=== PATIENT | male | born 1975 | race Caucasian/White ===

== ENCOUNTER 2023-06-01 10:04 | Inpatient (IN) | payer BC, SELFPAY ==
[2023-06-01] VITALS (11 sets, daily range): BP systolic 104–141; BP diastolic 79–99; PULSE 78–112; RESP 14–19; TEMP 36.2–37.2; O2SAT 96–99; BMI 25.5; BMI 26.6; BMI 26.7
--- NOTE | ~2023-06-01 | CT_ITS ---
EXAMINATION: CT ABDOMEN AND PELVIS WITH CONTRAST CLINICAL INFORMATION: Right lower quadrant pain COMPARISON: None available. TECHNIQUE: Multidetector volumetric images were obtained from the superior aspect of the liver through the pubic symphysis following administration 85 mL of Omnipaque 350 intravenous contrast. Sagittal and coronal reformatted images were obtained on the technologist's workstation. Oral contrast: No This CT examination was performed using dose optimization techniques as appropriate, variously including the following: *Automated exposure control *Adjustment of mA and/or kV according to patient size (this includes techniques or standardized protocols for targeted exams where dose is matched to indication/reason for exam; i.e. extremities or head) *Use of iterative reconstruction technique DLP: 432 mGy-cm FINDINGS: LUNG BASES: Unremarkable. LIVER AND BILIARY TREE: Unremarkable. GALLBLADDER: Unremarkable. PANCREAS: Unremarkable. SPLEEN: Unremarkable. ADRENAL GLANDS: Unremarkable. KIDNEYS AND URETERS: Right renal simple cyst and left renal subcentimeter hypoattenuating lesion, too small to characterize but statistically likely to represent a benign cyst for which no follow-up imaging is recommended. GASTROINTESTINAL TRACT: Dilated, fluid-filled appendix, measuring up to 1.1 cm in diameter (series 3, image 69), with mucosal thickening and marked periappendiceal fat stranding with trace fluid tracking along the mesoappendix. No periappendiceal fluid collections or free air identified. No mucosal discontinuity identified. VASCULAR: Unremarkable LYMPH NODES: No lymphadenopathy. PERITONEUM: No ascites. BLADDER: Unremarkable. PELVIC VISCERA: Unremarkable. ABDOMINAL AND PELVIC WALL: Unremarkable. OSSEOUS STRUCTURES: Mild multilevel degenerative lumbar spondylosis. CT/CT abdomen pelvis w IV con IMPRESSION: Acute uncomplicated appendicitis.
[2023-06-01 10:24] LABS: Basophils Absolute Auto 0.1 X10*3/uL (0.0-0.2); Basophils Percent Auto 0.5 % (0-2); Eosinophils Percent Auto 0.3 % (0-4); Hemoglobin 14.4 g/dl (14.0-18.0); Imm Gran Abs Auto 0.04 X10*3/uL (0.00-0.03); Imm Gran Pct Auto 0.3 % (0.0-0.4); Lymphocytes Absolute Auto 2.2 X10*3/uL (1.2-4.9); Lymphocytes Percent Auto 14.5 % (20-40); MANUAL DIFF FLAG SCAN; Mean Corpuscular HGB Conc 34.3 g/dl (31.0-36.0); Mean Corpuscular Hemoglobin 30.1 pg (27.0-33.0); Mean Corpuscular Volume 87.7 fL (80.0-98.0); Mean Platelet Volume 9.1 fL (9.4-12.4); Monocytes Absolute Auto 1.6 X10*3/uL (0.1-1.2); Monocytes Percent Auto 10.6 % (2-11); Neutrophils Absolute Auto 11.3 x10*3/uL (2.0-8.3); Neutrophils Percent Auto 73.8 % (45-73); Platelet Count 336 X10*3/uL (160-400); Red Blood Count 4.79 X10*6/uL (4.60-5.80); Red Cell Distribution Width 12.2 % (11.0-16.0); SCAN SMEAR FLAG 1; White Blood Count 15.2 X10*3/uL (4.8-10.8)
[2023-06-01 10:42] LABS: SLIDE REVIEW VERIFIED
[2023-06-01 10:45] LABS: Alanine Aminotransferase 17 U/L (0-40); Albumin Level 4.5 g/dL (3.5-5.0); Alkaline Phosphatase 100 U/L (39-117); Anion Gap 14 (12-20); Aspartate Amino Transferase 12 U/L (5-37); Bilirubin Direct 0.2 mg/dL (0.0-0.5); Bilirubin Total 0.6 mg/dL (0.0-1.0); Blood Urea Nitrogen 23 mg/dL (9-16); Calcium 9.9 mg/dL (8.4-10.2); Carbon Dioxide 29 mmol/L (22-29); Chloride 100 mmol/L (96-108); Creatinine Clr Calc Pharmacy 71.2; Estimated Glomerular Filt Rate > 60; Glucose Random 116 mg/dL (60-115); Lipase 19 U/L (8-78); Potassium 3.8 mmol/L (3.3-5.1); Sodium 139 mmol/L (135-145); Total Protein 8.7 g/dL (6.5-8.0)
[2023-06-01] MEDS: 0.9 % Sodium Chloride 1,000 ML 999 ML IV (14:27)
[2023-06-01] MEDS: Ketorolac Tromethamine 30 MG/ML VIAL 15 MG IVPUSH (14:33)
--- NOTE | 2023-06-01 14:38 | ED_ITS ---
HPI - Abdominal Pain General Chief Complaint: Abdominal Pain Stated Complaint: Sharp abd pain Time Seen by Provider: 06/01/23 14:12 Source: patient Mode of arrival: ambulatory History of Present Illness HPI narrative: 48-year-old male who presents with onset mid abdominal discomfort that started on Friday and then states that the pain just remains constant and will not go away, patient reports he does have a hernia but otherwise denies nausea, vomiting, fever chills and denies any prior surgery within the abdomen. Related Data Allergies Allergy/AdvReac Type Severity Reaction Status Date / Time Penicillins [PCN] Allergy Unknown HIVES Verified 06/01/23 14:27 [facility] Social History Social History Advance Directives: No Advance Directives Information Provided: No Physical Exam ED Vital Signs: Vital Signs - 24 hr 06/01/23 10:09 06/01/23 14:22 Temperature 97.2 F 98.3 F Pulse Rate 112 H 105 H Respiratory Rate 17 18 Blood Pressure 129/87 134/91 H Pulse Oximetry 97 99 Oxygen Delivery Method Room Air Room Air BMI result Body Mass Index 25.5 Medical Decision Making Medical Decision Making [facility] Narrative: 1420: 48-year-old male with history and clinical presentation, DDX: Appendicitis, strangulated hernia, less likely felt to be UTI or renal colic. Patient getting antibiotics/fluids/pain medication. I reviewed all investigations and patient has a noted leukocytosis with left shift but no anemia or thrombocytopenia. Chemistry indices do not demonstrate an GOPI and there is no electrolyte or liver enzyme derangements. CT scan demonstrates early uncomplicated appendicitis. 1611: I texted Dr. Alberto who is currently in the OR but have also signed the patient out to Dr. Miles to follow-up. Patient states that his pain has improved. Patient is been made NPO and continuous IV fluids have been started. All results and findings were discussed with he and his at bedside. Signed out to Dr Milesto coordinate details with Dr Alberto Differential Diagnosis Differential Diagnoses: The differential diagnosis associated with the presentation includes Please see the discussion above Admission/Observation Consideration of admission/observation: Escalation of care including admission/observation considered Please see the discussion above Consult Healthcare Provider Management of the patient was discussed with: [employer] Operator Please see the discussion above Lab Data [facility] Lab Attestation statement: I reviewed the patient's lab results. Please see the discussion above 06/01/23 10:19 06/01/23 10:19 Labs: Lab Results 06/01/23 06/01/23 Range/Units 10:19 14:26 WBC 15.2 H (4.8-10.8) X10*3/uL RBC 4.79 (4.60-5.80) X10*6/uL Hgb 14.4 (14.0-18.0) g/dl Hct 42.0 (42.0-52.0) % MCV 87.7 (80.0-98.0) fL MCH 30.1 (27.0-33.0) pg MCHC 34.3 (31.0-36.0) g/dl RDW 12.2 (11.0-16.0) % Plt Count 336 (160-400) X10*3/uL MPV 9.1 L (9.4-12.4) fL Immature Gran % (Auto) 0.3 (0.0-0.4) % Neut % (Auto) 73.8 H (45-73) % Lymph % (Auto) 14.5 L (20-40) % [place] % (Auto) 10.6 (2-11) % Eos % (Auto) 0.3 (0-4) % Baso % (Auto) 0.5 (0-2) % Lymph # (Auto) 2.2 (1.2-4.9) X10*3/uL [place] # (Auto) 1.6 H (0.1-1.2) X10*3/uL Eos # (Auto) 0.0 (0.0-0.4) X10*3/uL Baso # (Auto) 0.1 (0.0-0.2) X10*3/uL Abs Immat Gran (auto) 0.04 H (0.00-0.03) X10*3/uL Absolute Neuts (auto) 11.3 H (2.0-8.3) x10*3/uL Absolute Nucleated RBC 0.000 (0.0-0.012) X10*3/uL Nucleated RBC % (auto) 0.0 (0.0-0.2) /100WBC Smear Tech's Comments VERIFIED Sodium 139 (135-145) mmol/L Potassium 3.8 (3.3-5.1) mmol/L Chloride 100 (96-108) mmol/L Carbon Dioxide 29 (22-29) mmol/L Anion Gap 14 (12-20) BUN 23 H (9-16) mg/dL Creatinine 1.12 (0.5-1.4) mg/dL Estim Creat Clear Calc 71.2 Estimated GFR > 60 Random Glucose 116 H (60-115) mg/dL Lactic Acid 1.5 (0.5-2.0) mmol/L Calcium 9.9 (8.4-10.2) mg/dL Total Bilirubin 0.6 (0.0-1.0) mg/dL Direct Bilirubin 0.2 (0.0-0.5) mg/dL AST 12 (5-37) U/L ALT 17 (0-40) U/L Alkaline Phosphatase 100 (39-117) U/L Total Protein 8.7 H (6.5-8.0) g/dL Albumin 4.5 (3.5-5.0) g/dL Lipase 19 (8-78) U/L Radiology Impression Discussion of test interpretation with radiology: I have reviewed the radiologist's reading. Radiologist Impression: Please see the discussion above Chronic Conditions Patient?s care impacted by: Hypertension Medications Administered Discontinued Medications Generic Name Dose Route Start Last Admin Trade Name Freq PRN Reason Stop Dose Admin Sodium Chloride 1,000 mls @ 999 mls/hr 06/01/23 14:15 06/01/23 15:43 Ns IV 06/01/23 15:15 Infused .Q1H1M LADONNA Infusion Ceftriaxone Sodium 1 gm/ 50 mls @ 100 mls/hr 06/01/23 14:12 06/01/23 15:10 Sodium Chloride IV 06/01/23 14:41 Infused ONCE ONE Infusion Iohexol 85 ml 06/01/23 15:23 06/01/23 15:24 Iohexol 350 Mg/Ml 100 Ml Infus..Btl IV 06/01/23 15:24 85 ml ONCE ONE Administration Ketorolac Tromethamine 15 mg 06/01/23 14:13 06/01/23 14:33 Ketorolac Tromethamine 30 Mg/Ml Vial IVPUSH 06/01/23 14:14 15 mg ONCE ONE Administration Critical Care Time Critical Care Time Critical Care Time: Yes Total Critical Care Time: 60 Attestation: I personally attest to this time spent taking care of the patient. Discharge Plan Discharge Clinical Impression: Acute appendicitis Patient Disposition: Admitted As Inpatient
[2023-06-01] MEDS: cefTRIAXone sodium 1 GM in 0.9 % Sodium Chloride 50 ML IV (14:40)
--- NOTE | 2023-06-01 14:42 | PC.NURSE ---
medication/IVF administered per provider order. pt aware of plan of care at this time. bedside for support. call vieira placed within reach.,
[2023-06-01 14:45] LABS: Lactic Acid 1.5 mmol/L (0.5-2.0)
[2023-06-01] MEDS: iohexoL 350 MG/ML 100 ML INFUS..BTL 85 ML IV (15:24)
--- NOTE | 2023-06-01 15:24 | PC.NURSE ---
pt to CT at this time.
--- NOTE | 2023-06-01 15:44 | PC.NURSE ---
pt returned from CT at this time. pt states pain level decreased to a 5/10 post medication administration. states he is feeling much better. pt waiting for CT results at this time. respirations remain even and unlabored. bedside. call vieira placed within reach.
[2023-06-01] MEDS: 0.9 % Sodium Chloride 1,000 ML 125 ML IVCONT (16:56)
--- NOTE | 2023-06-01 17:00 | PC.NURSE ---
vss and up to date at this time. pt states pain level decreased to a 5/10 post medication administration. IVF administered per provider order. respirations remain even and unlabored. bedside. plan of care ongoing. call vieira placed within reach.
--- NOTE | 2023-06-01 17:12 | PHA.MEDREC ---
Pharmacy Consult ? Medication Reconciliation Pharmacy has completed the medication reconciliation. patient confirmed.
--- NOTE | 2023-06-01 18:01 | PM.HPGS ---
History of Present Illness History of Present Illness Date of Service: 06/01/23 Chief complaint: acute appendicitis Narrative: Francisco De Paz is a 48 year old male presenting with complaints of abdominal pain in the right lower quadrant. He reports the pain began shortly after midnight on Friday05/31/2023. The pain was mainly located generalized around the periumbilical region but then gradually radiated to the right lower quadrant. He reports sleeping most of yesterday and noted the pain to increase today and become more localized in the right lower quadrant. He denies nausea, vomiting, fever or chills. He reports a lack of appetite at this time. He subsequently presented to the emergency department and was noted to be very tender in the right lower quadrant. Laboratories revealed an elevated WBC and CT abdomen and pelvis confirmed acute appendicitis without perforation or abscess. He is admitted to the surgical service for further management of this acute appendicitis. Review of Systems Review of Systems: Yes all other systems are reviewed and are negative Constitutional: Constitutional: Reports poor appetite Gastrointestinal: Gastrointestinal: Reports as per HPI, Reports abdominal pain, Denies nausea and Denies vomiting PMFSH Social History Social History Alcohol intake: current Alcohol intake frequency: holidays/special occasions only Smoked in Last 30 Days: No Use of substances other than those prescribed or required for medical reasons: No Advance Directives: No Advance Directives Information Provided: No Meds Allergies Allergy/AdvReac Type Severity Reaction Status Date / Time Penicillins [PCN] Allergy Unknown HIVES Verified 06/01/23 14:27 Active Medications: Current Medications Sodium Chloride (Ns) 1,000 mls @ 125 mls/hr IVCONT .Q8H LADONNA Last Admin: 06/01/23 16:56 Dose: 125 mls/hr Home Medications Medication Instructions Recorded Confirmed Last Taken Type No Known Home Meds 06/01/23 06/01/23 Unknown History Physical Exam Vital Signs: Vital Signs: Last Vital Signs Temp 97.5 F 06/01/23 16:58 Pulse 93 06/01/23 16:58 Resp 16 06/01/23 16:58 BP 130/85 06/01/23 16:58 Pulse Ox 97 06/01/23 16:58 O2 Del Method Room Air 06/01/23 16:58 BMI result Body Mass Index 25.5 Const: General: cooperative and no acute distress Nutritional Appearance: well nourished Orientation/consciousness: patient oriented x3 Limitations: no limitations HEENT: Head: Yes normocephalic and Yes atraumatic Ears: hearing grossly normal bilaterally Resp: Effort & Inspection: normal respiratory effort, no audible wheezes, no cough and no respiratory distress Cardio: Jugular venous distension: no JVD GI: Inspection: Yes normal to inspection Palpation (GI): Soft to palpation, Tenderness to palpation present (GI) in the RLQ and at McBurney's point, no guarding and not rigid Percussion: Yes normal to percussion Auscultation: normal bowel sounds Rectal Exam - Male: Yes deferred Skin: Other: Warm, dry, no rash Neuro: General: patient oriented x3 Extrem: General: Yes no clubbing, cyanosis or edema Results Results Labs: Short CBC 06/01/23 Range/Units 10:19 WBC 15.2 H (4.8-10.8) X10*3/uL Hgb 14.4 (14.0-18.0) g/dl Hct 42.0 (42.0-52.0) % Plt Count 336 (160-400) X10*3/uL BMP 06/01/23 10:19 Sodium 139 Potassium 3.8 Chloride 100 Carbon Dioxide 29 BUN 23 H Creatinine 1.12 Calcium 9.9 Liver Function 06/01/23 Range/Units 10:19 Total Bilirubin 0.6 (0.0-1.0) mg/dL Direct Bilirubin 0.2 (0.0-0.5) mg/dL AST 12 (5-37) U/L ALT 17 (0-40) U/L Alkaline Phosphatase 100 (39-117) U/L Albumin 4.5 (3.5-5.0) g/dL Assessment and Plan (1) Acute appendicitis: Qualifiers: Acute appendicitis type: with localized peritonitis Appendicitis gangrene presence: without gangrene Appendicitis perforation presence: without perforation Appendicitis abscess presence: without abscess Qualified Code(s): K35.30 - Acute appendicitis with localized peritonitis, without perforation or gangrene Status: Acute Plan 48-year-old male patient presenting with complaints of abdominal pain in the right lower quadrant. The patient is noted to be tender in the right lower quadrant over McBurney's point. Laboratories revealed an elevated WBC and CT abdomen and pelvis confirmed acute appendicitis. We discussed treatment with antibiotics verses surgery. After discussion of the procedure, risks, and alternatives, he consents to a laparoscopic or possible open appendectomy. He has been added onto the operative schedule for today. Quality Stroke Does the patient have a stroke diagnosis?: No VTE Prior VTE?: No VTE Risk Level:: Surgical - low VTE Device Contraindication: N/A - Device Ordered VTE Drug Contraindication: Treatment Not Indicated Procedures Date of Service Date of Service: 06/01/23
[2023-06-01] MEDS: metroNIDAZOLE/NS 500 MG/100 ML PIGGYBACK 100 MG IV (18:57)
--- NOTE | 2023-06-01 19:46 | P.CONAN_ITS ---
HPI - Anesthesia Eval Consult details Narrative: Acute appendicitis PMFSH Active Problems Active Problems: All Active Problems (Updated 06/01/23 @ 18:03 by Gabino Albreto MD) Acute appendicitis (Acute) Family History Family history of problems with anesthesia: No Surgical History History of Problems with Anesthesia: No Social History Social History Alcohol intake: current Alcohol intake frequency: 0-2 drinks per day Patient Tobacco Use Status: Never used Tobacco Smoked in Last 30 Days: No Use of substances other than those prescribed or required for medical reasons: No Are you DNR?: No Advance Directives: No Advance Directives Information Provided: No Nutrition Risks: No Nutritional Risk Meds Allergies Allergy/AdvReac Type Severity Reaction Status Date / Time Penicillins [PCN] Allergy Unknown HIVES Verified 06/01/23 19:26 Active Medications: Current Medications Hydromorphone HCl (Hydromorphone Hcl 0.5 Mg/0.5 Ml Syringe) 0.5 mg IVPUSH Q3H PRN; Protocol PRN Reason: Pain, Severe (Pain Scale 7-10) Sodium Chloride (Ns) 1,000 mls @ 125 mls/hr IVCONT .Q8H LADONNA Last Admin: 06/01/23 16:56 Dose: 125 mls/hr Ondansetron HCl (Ondansetron Hcl 4 Mg/2 Ml Vial) 4 mg IVPUSH QID PRN PRN Reason: Nausea Home Medications Medication Instructions Recorded Confirmed Last Taken Type No Known Home Meds 06/01/23 06/01/23 Unknown History Exam Height,Weight and Vital Signs: Height 5 ft 6 in Weight 74.843 kg Last Vital Signs Temp 99.0 F 06/01/23 19:31 Pulse 95 06/01/23 19:31 Resp 16 06/01/23 19:31 BP 138/84 06/01/23 19:31 Pulse Ox 98 06/01/23 19:31 O2 Del Method Room Air 06/01/23 19:31 Pertinent Lab Results Pertinent Lab Results: Laboratory Tests 06/01/23 06/01/23 10:19 14:26 WBC 15.2 H RBC 4.79 Hgb 14.4 Hct 42.0 MCV 87.7 MCH 30.1 MCHC 34.3 RDW 12.2 Plt Count 336 MPV 9.1 L Immature Gran % (Auto) 0.3 Neut % (Auto) 73.8 H Lymph % (Auto) 14.5 L [place] % (Auto) 10.6 Eos % (Auto) 0.3 Baso % (Auto) 0.5 Lymph # (Auto) 2.2 [place] # (Auto) 1.6 H Eos # (Auto) 0.0 Baso # (Auto) 0.1 Abs Immat Gran (auto) 0.04 H Absolute Neuts (auto) 11.3 H Absolute Nucleated RBC 0.000 Nucleated RBC % (auto) 0.0 Smear Tech's Comments VERIFIED Sodium 139 Potassium 3.8 Chloride 100 Carbon Dioxide 29 Anion Gap 14 BUN 23 H Creatinine 1.12 Estim Creat Clear Calc 71.2 Estimated GFR > 60 Random Glucose 116 H Lactic Acid 1.5 Calcium 9.9 Total Bilirubin 0.6 Direct Bilirubin 0.2 AST 12 ALT 17 Alkaline Phosphatase 100 Total Protein 8.7 H Albumin 4.5 Lipase 19 Airway Mallampati Class: II TM Dist: >3cm Neck ROM: Full Loose/Missing/Broken Teeth: No Heart: RRR Lungs: CTA Assessment and Plan Assessment Anesthesia Assessment: Anesthesia Plan Discussed and Chart Reviewed Final Anesthetic Review Family History of Problems with Anesthesia: No History of Problems with Anesthesia: No NPO: Yes ASA Class: I and Emergency Final Preanesthetic Review: No Changes in Pt Med Stat, Meds/Allgs Chart Reviewed, Consent Obtained/Reviewed and Anes Risks/Benef Reviewed Patient Risk: Low Procedure Risk: Intermediate Anesthetic Plan Anesthetic Plan: GA Disposition: Standard PACU
--- NOTE | 2023-06-01 20:34 | PC.NURSE ---
surgical team at bedside to take pt, pt changed into gown and belongings given to . pt transported to surgical suite with at side
[2023-06-01 20:36] LABS: Appearance Urine Clear; Color Urine Yellow; Glucose Urine UA Negative (Negative); Leukocyte Esterase Urine Negative (Negative); Nitrite Urine Negative (Negative); PH 6.5 (5.0-9.0); Specific Gravity - Urine >= 1.030 (1.005-1.025); Urine Blood Negative (Negative); Urine Ketones 40 mg/dL (Negative); Urine Protein Trace mg/dL (Neg-Trace)
--- NOTE | 2023-06-01 21:25 | W.PM.OPN ---
Operative Note Operative Note Date of Service: 06/01/23 Narrative: Preoperative diagnosis: Acute appendicitis Postoperative diagnosis: Same Procedure: Laparoscopic appendectomy Surgeon: Gabino Alberto MD Grievance Manager:none Anesthesia: General endotracheal Indications for procedure: 48-year-old male patient presenting with complaints of right lower quadrant abdominal pain found to have an elevated WBC and CT showing evidence of acute appendicitis without perforation. Operative findings: Acutely inflamed and gangrenous appearing appendix without perforation. Surrounding phlegmon involving omentum. Specimen: Appendix Estimated blood loss: 2 cc Complications: None Procedure details: Patient was brought to the OR and placed in a supine position. After administering general anesthesia the patient's abdomen was prepped with ChloraPrep and draped in a sterile fashion. A surgical time-out was called and consent confirmed. Patient received preoperative antibiotics and Venodyne boots were in place. Local anesthesia consisting of 0.5% Sensorcaine with epinephrine was infiltrated in periumbilical region. A 5 mm incision was made below the umbilicus and carried down through subcutaneous tissue. A Veress needle was then inserted while elevating abdominal cavity with towel clips. After a positive drop test the abdomen was insufflated to a pressure of 15 mm of mercury. The Veress needle was removed and a 5 mm trocar inserted. The camera was then inserted in the abdomen explored. A 2nd 5 mm trocars placed in the lower midline. A 12 mm trocar was then placed in the left lower quadrant. The patient was then placed in a Trendelenburg position and rotated to the left. The appendix was identified in the right lower quadrant and brought up using blunt dissecting clamps. The mesentery of the appendix was then divided using the LigaSure. The appendiceal artery was cauterized and divided using the LigaSure. Dissection was continued down to the base of the cecum. An Endo-WOODY stapler with a purple reload was then used to divide the appendix at the base with the cecum. The appendix was then placed in Endo-Catch bag and brought out through the left lower quadrant incision. The abdomen was then irrigated with saline solution and suctioned dry. Wounds were checked for hemostasis. CO2 was then evacuated from the abdominal cavity and all trocars removed. Fascia was closed in the left lower quadrant incision using a [id number] 0 Polysorb suture. Skin was closed at all incisions using a subcuticular 4-0 Polysorb suture. Steri-Strips 2 x 2 gauze and Tegaderm were then applied. The patient tolerated the procedure well. Sponge, instrument, needle counts reported as correct. The patient was transferred to PACU in stable condition.
[2023-06-01] MEDS: Dextrose 5 % and Lactated Ring 1,000 ML 125 ML IVCONT (22:40)
[2023-06-02] VITALS: RESP 18
[2023-06-02 02:56] VITALS: BP 135/80; PULSE 70; RESP 16; TEMP 36; O2SAT 97
[2023-06-02] MEDS: Acetaminophen 1,000 MG/100 ML PIGGYBACK 400 MG IV (02:59)
--- NOTE | 2023-06-02 03:30 | PC.NURSE ---
pt ambulated to Br void large amount of urine. abdominal x 3 dsgs D/I.
[2023-06-02 05:25] LABS: MANUAL DIFF FLAG NO
[2023-06-02 05:30] LABS: Basophils Percent Auto 0.3 % (0-2); Hematocrit 36.4 % (42.0-52.0); Hemoglobin 12.4 g/dl (14.0-18.0); Imm Gran Abs Auto 0.06 X10*3/uL (0.00-0.03); Imm Gran Pct Auto 0.5 % (0.0-0.4); Lymphocytes Absolute Auto 1.1 X10*3/uL (1.2-4.9); Lymphocytes Percent Auto 9.7 % (20-40); Mean Corpuscular HGB Conc 34.1 g/dl (31.0-36.0); Mean Corpuscular Hemoglobin 30.2 pg (27.0-33.0); Mean Corpuscular Volume 88.6 fL (80.0-98.0); Mean Platelet Volume 9.5 fL (9.4-12.4); Monocytes Absolute Auto 0.3 X10*3/uL (0.1-1.2); Monocytes Percent Auto 2.9 % (2-11); Neutrophils Percent Auto 86.6 % (45-73); Platelet Count 314 X10*3/uL (160-400); Red Blood Count 4.11 X10*6/uL (4.60-5.80); Red Cell Distribution Width 12.2 % (11.0-16.0); White Blood Count 11.5 X10*3/uL (4.8-10.8)
[2023-06-02 07:23] VITALS: BP 121/83; PULSE 77; RESP 16; TEMP 36.7; O2SAT 97
--- NOTE | 2023-06-02 08:23 | P.PNGS_ITS ---
Subjective Subjective Date of Service: 06/02/23 Interval history: Overall patient feels improved this morning decreased abdominal pain. He denies any nausea or vomiting. He has not eaten any solid food yet. Physical Exam 2 Vital Signs: Vital Signs: Last Vital Signs Temp 98.0 F 06/02/23 07:23 Pulse 77 06/02/23 07:23 Resp 16 06/02/23 07:23 BP 121/83 06/02/23 07:23 Pulse Ox 97 06/02/23 07:23 O2 Del Method Room Air 06/02/23 07:23 O2 Flow Rate 2 06/01/23 22:46 BMI result Body Mass Index 26.7 Const: General: comfortable Nutritional Appearance: well nourished O rientation/consciousness: patient oriented x3 Resp: Effort & Inspection: normal respiratory effort GI: Other: Soft and nondistended. Trocar incisions are clean, dry, and intact. Neuro: General: patient oriented x3 Extrem: Other: No edema Objective Data Active Medications Hydromorphone HCl (Hydromorphone Hcl 0.5 Mg/0.5 Ml Syringe) 0.5 mg IVPUSH Q3H PRN; Protocol PRN Reason: Pain, Severe (Pain Scale 7-10) Acetaminophen (Ofirmev) 1,000 mg in 100 mls @ 400 mls/hr IV Q6H [facility] Stop: 06/02/23 17:14 Last Admin: 06/02/23 06:22 Dose: Not Given Documented By: LEON Non-Admin Reason: last one given late because from pacu dose wa Dextrose/Lactated Ringer's (D5lr) 1,000 mls @ 125 mls/hr IVCONT .Q8H [facility] Last Infusion: 06/02/23 07:40 Dose: Infused Documented By: DUSTY Ondansetron HCl (Ondansetron Hcl 4 Mg/2 Ml Vial) 4 mg IVPUSH QID PRN PRN Reason: Nausea Zolpidem Tartrate (Zolpidem Tartrate 5 Mg Tablet) 5 mg PO BEDTIME PRN PRN Reason: Insomnia Labs 06/02/23 05:10 06/01/23 10:19 Labs: Laboratory Results - last 24 hr 06/01/23 06/01/23 06/01/23 10:19 14:26 20:26 MCV 87.7 MCH 30.1 MCHC 34.3 RDW 12.2 Plt Count 336 MPV 9.1 L Immature Gran % (Auto) 0.3 Neut % (Auto) 73.8 H Lymph % (Auto) 14.5 L [place] % (Auto) 10.6 Eos % (Auto) 0.3 Baso % (Auto) 0.5 Lymph # (Auto) 2.2 [place] # (Auto) 1.6 H Eos # (Auto) 0.0 Baso # (Auto) 0.1 Abs Immat Gran (auto) 0.04 H Absolute Neuts (auto) 11.3 H Absolute Nucleated RBC 0.000 Nucleated RBC % (auto) 0.0 Smear Tech's Comments VERIFIED Anion Gap 14 Estim Creat Clear Calc 71.2 Estimated GFR > 60 Random Glucose 116 H Lactic Acid 1.5 Calcium 9.9 Total Bilirubin 0.6 Direct Bilirubin 0.2 AST 12 ALT 17 Alkaline Phosphatase 100 Total Protein 8.7 H Albumin 4.5 Lipase 19 Urine Color Yellow Urine Appearance Urine pH Ur Specific [place] Urine Protein Urine Glucose (UA) Urine Ketones Urine Blood Urine Nitrite Ur Leukocyte Esterase 06/01/23 06/01/23 06/01/23 20:26 20:26 20:26 MCV MCH MCHC RDW Plt Count MPV Immature Gran % (Auto) Neut % (Auto) Lymph % (Auto) [place] % (Auto) Eos % (Auto) Baso % (Auto) Lymph # (Auto) [place] # (Auto) Eos # (Auto) Baso # (Auto) Abs Immat Gran (auto) Absolute Neuts (auto) Absolute Nucleated RBC Nucleated RBC % (auto) Smear Tech's Comments Anion Gap Estim Creat Clear Calc Estimated GFR Random Glucose Lactic Acid Calcium Total Bilirubin Direct Bilirubin AST ALT Alkaline Phosphatase Total Protein Albumin Lipase Urine Color Cancelled Urine Appearance Clear Cancelled Urine pH 6.5 Cancelled Ur Specific [place] >= 1.030 H Urine Protein Urine Glucose (UA) Urine Ketones Urine Blood Urine Nitrite Ur Leukocyte Esterase 06/01/23 06/01/23 06/01/23 20:26 20:26 20:26 MCV MCH MCHC RDW Plt Count MPV Immature Gran % (Auto) Neut % (Auto) Lymph % (Auto) [place] % (Auto) Eos % (Auto) Baso % (Auto) Lymph # (Auto) [place] # (Auto) Eos # (Auto) Baso # (Auto) Abs Immat Gran (auto) Absolute Neuts (auto) Absolute Nucleated RBC Nucleated RBC % (auto) Smear Tech's Comments Anion Gap Estim Creat Clear Calc Estimated GFR Random Glucose Lactic Acid Calcium Total Bilirubin Direct Bilirubin AST ALT Alkaline Phosphatase Total Protein Albumin Lipase Urine Color Urine Appearance Urine pH Ur Specific [place] Cancelled Urine Protein Trace Cancelled Urine Glucose (UA) Negative Cancelled Urine Ketones 40 Urine Blood Urine Nitrite Ur Leukocyte Esterase 06/01/23 06/01/23 06/01/23 20:26 20:26 20:26 MCV MCH MCHC RDW Plt Count MPV Immature Gran % (Auto) Neut % (Auto) Lymph % (Auto) [place] % (Auto) Eos % (Auto) Baso % (Auto) Lymph # (Auto) [place] # (Auto) Eos # (Auto) Baso # (Auto) Abs Immat Gran (auto) Absolute Neuts (auto) Absolute Nucleated RBC Nucleated RBC % (auto) Smear Tech's Comments Anion Gap Estim Creat Clear Calc Estimated GFR Random Glucose Lactic Acid Calcium Total Bilirubin Direct Bilirubin AST ALT Alkaline Phosphatase Total Protein Albumin Lipase Urine Color Urine Appearance Urine pH Ur Specific [place] Urine Protein Urine Glucose (UA) Urine Ketones Cancelled Urine Blood Negative Cancelled Urine Nitrite Negative Cancelled Ur Leukocyte Esterase Negative 06/01/23 06/02/23 20:26 05:10 MCV 88.6 MCH 30.2 MCHC 34.1 RDW 12.2 Plt Count 314 MPV 9.5 Immature Gran % (Auto) 0.5 H Neut % (Auto) 86.6 H Lymph % (Auto) 9.7 L [place] % (Auto) 2.9 Eos % (Auto) 0.0 Baso % (Auto) 0.3 Lymph # (Auto) 1.1 L [place] # (Auto) 0.3 Eos # (Auto) 0.0 Baso # (Auto) 0.0 Abs Immat Gran (auto) 0.06 H Absolute Neuts (auto) 10.0 H Absolute Nucleated RBC 0.000 Nucleated RBC % (auto) 0.0 Smear Tech's Comments Anion Gap Estim Creat Clear Calc Estimated GFR Random Glucose Lactic Acid Calcium Total Bilirubin Direct Bilirubin AST ALT Alkaline Phosphatase Total Protein Albumin Lipase Urine Color Urine Appearance Urine pH Ur Specific [place] Urine Protein Urine Glucose (UA) Urine Ketones Urine Blood Urine Nitrite Ur Leukocyte Esterase Cancelled Procedures Date of Service Date of Service: 06/02/23 Progress Note: A&P Assessment and plan (1) Acute appendicitis: Status: Acute Plan Pod 1 following laparoscopic appendectomy last evening. He tolerated the procedure well and already feels improved. He will start a regular diet this morning and if well tolerated may be discharged to home. He should follow up in the office in approximately 1 week. He should avoid lifting greater than 10 lb for approximately 2 weeks following the surgery. Time Spent With Patient Time: Total time managing care of this patient today ____ minutes. Quality Stroke Does the patient have a stroke diagnosis?: No VTE Prior VTE?: No VTE Risk Level:: Surgical - low VTE Device Contraindication: N/A - Device Ordered VTE Drug Contraindication: Treatment Not Indicated
--- NOTE | 2023-06-02 09:04 | MHC.CM.PN ---
Male 48 s/p Appy He lives with . He is independent. PCP [facility]. He is discharged today. to home self care. His will provide transportation home.
--- NOTE | 2023-06-02 13:27 | P.DS_ITS ---
DS: Providers Provider Date of Service: 06/02/23 Date of admission: 06/01/23 17:58 Date of discharge: 06/02/23 Primary care physician: [place] Physician Attending physician on admission: Gabino Alberto Attending physician on discharge: Gabino Alberto DS: Diagnosis Discharge Diagnosis (1) Acute appendicitis: Status: Acute DS: Summary Hospital Course Hospital Course: HPI AT ADMISSION: Francisco De Paz is a 48 year old male presenting with complaints of abdominal pain in the right lower quadrant. He reports the pain began shortly after midnight on Friday05/31/2023. The pain was mainly located generalized around the periumbilical region but then gradually radiated to the right lower quadrant. He reports sleeping most of yesterday and noted the pain to increase today and become more localized in the right lower quadrant. He denies nausea, vomiting, fever or chills. He reports a lack of appetite at this time. He subsequently presented to the emergency department and was noted to be very tender in the right lower quadrant. Laboratories revealed an elevated WBC and CT abdomen and pelvis confirmed acute appendicitis without perforation or abscess. He is admitted to the surgical service for further management of this acute appendicitis. HOSPITAL COURSE: He was admitted to the surgical service for management of acute appendicitis. Discussed the options of IV antibiotics verses laparoscopic/open appendectomy. He elected to proceed with surgery and was added onto the OR schedule for that day. On 06/01/23, a laparoscopic appendectomy was performed without complication. The appendix was acutely inflamed and gangrenous without perforation with surrounding phlegmon involving omentum. The patient tolerated the procedure well. He had an uncomplicated recovery course. On POD #1, he had good pain control. He was ambulating without difficulty. He was tolerating a solid diet. He was clinically appearing well with a benign abd exam and clean/intact dressings. He felt ready for discharge. He was discharged to home on 06/02/23 in stable condition. He is to follow up in the office in 1 week. Status at Discharge Functional status at discharge: independent ambulation Overall status at discharge: patient is progressing back to baseline Time Attestation Discharge coordination time: Less than 30 minutes Quality: Safe Use of Opioids Does Pt have an Active Cancer Diagnosis on the Problem List?: No Quality: Stroke Does the patient have a stroke diagnosis?: No Physical Exam Vital Signs: Vital Signs: Last Vital Signs Temp 98.0 F 06/02/23 07:23 Pulse 77 06/02/23 07:23 Resp 16 06/02/23 07:23 BP 121/83 06/02/23 07:23 Pulse Ox 97 06/02/23 07:23 O2 Del Method Room Air 06/02/23 07:23 O2 Flow Rate 2 06/01/23 22:46 BMI result Body Mass Index 26.7 Const: General: comfortable, no acute distress and alert Orientation/consciousness: patient oriented x3 Resp: Effort & Inspection: normal respiratory effort GI: Inspection: No distended and Yes incision (dressings c/d/i) Palpation (GI): Soft to palpation, not firm and Tenderness to palpation present (GI) (mild incisional) Skin: General skin exam: no rashes or lesions noted Neuro: General: patient oriented x3 and moves all extremities DS: Data Data Completed and Pending Pending studies at discharge: Pending at discharge 06/01/23 21:12 Surgical [PTH] Routine Labs on day of discharge: Laboratory Results - last 24 hr 06/01/23 06/01/23 06/01/23 10:19 14:26 20:26 WBC RBC Hgb Hct MCV MCH MCHC RDW Plt Count MPV Immature Gran % (Auto) Neut % (Auto) Lymph % (Auto) [place] % (Auto) Eos % (Auto) Baso % (Auto) Lymph # (Auto) [place] # (Auto) Eos # (Auto) Baso # (Auto) Abs Immat Gran (auto) Absolute Neuts (auto) Absolute Nucleated RBC Nucleated RBC % (auto) Smear Tech's Comments VERIFIED Lactic Acid 1.5 Urine Color Yellow Urine Appearance Urine pH Ur Specific [place] Urine Protein Urine Glucose (UA) Urine Ketones Urine Blood Urine Nitrite Ur Leukocyte Esterase 06/01/23 06/01/23 06/01/23 20:26 20:26 20:26 WBC RBC Hgb Hct MCV MCH MCHC RDW Plt Count MPV Immature Gran % (Auto) Neut % (Auto) Lymph % (Auto) [place] % (Auto) Eos % (Auto) Baso % (Auto) Lymph # (Auto) [place] # (Auto) Eos # (Auto) Baso # (Auto) Abs Immat Gran (auto) Absolute Neuts (auto) Absolute Nucleated RBC Nucleated RBC % (auto) Smear Tech's Comments Lactic Acid Urine Color Cancelled Urine Appearance Clear Cancelled Urine pH 6.5 Cancelled Ur Specific [place] >= 1.030 H Urine Protein Urine Glucose (UA) Urine Ketones Urine Blood Urine Nitrite Ur Leukocyte Esterase 06/01/23 06/01/23 06/01/23 20:26 20:26 20:26 WBC RBC Hgb Hct MCV MCH MCHC RDW Plt Count MPV Immature Gran % (Auto) Neut % (Auto) Lymph % (Auto) [place] % (Auto) Eos % (Auto) Baso % (Auto) Lymph # (Auto) [place] # (Auto) Eos # (Auto) Baso # (Auto) Abs Immat Gran (auto) Absolute Neuts (auto) Absolute Nucleated RBC Nucleated RBC % (auto) Smear Tech's Comments Lactic Acid Urine Color Urine Appearance Urine pH Ur Specific [place] Cancelled Urine Protein Trace Cancelled Urine Glucose (UA) Negative Cancelled Urine Ketones 40 Urine Blood Urine Nitrite Ur Leukocyte Esterase 06/01/23 06/01/23 06/01/23 20:26 20:26 20:26 WBC RBC Hgb Hct MCV MCH MCHC RDW Plt Count MPV Immature Gran % (Auto) Neut % (Auto) Lymph % (Auto) [place] % (Auto) Eos % (Auto) Baso % (Auto) Lymph # (Auto) [place] # (Auto) Eos # (Auto) Baso # (Auto) Abs Immat Gran (auto) Absolute Neuts (auto) Absolute Nucleated RBC Nucleated RBC % (auto) Smear Tech's Comments Lactic Acid Urine Color Urine Appearance Urine pH Ur Specific [place] Urine Protein Urine Glucose (UA) Urine Ketones Cancelled Urine Blood Negative Cancelled Urine Nitrite Negative Cancelled Ur Leukocyte Esterase Negative 06/01/23 06/02/23 20:26 05:10 WBC 11.5 H RBC 4.11 L Hgb 12.4 L Hct 36.4 L MCV 88.6 MCH 30.2 MCHC 34.1 RDW 12.2 Plt Count 314 MPV 9.5 Immature Gran % (Auto) 0.5 H Neut % (Auto) 86.6 H Lymph % (Auto) 9.7 L [place] % (Auto) 2.9 Eos % (Auto) 0.0 Baso % (Auto) 0.3 Lymph # (Auto) 1.1 L [place] # (Auto) 0.3 Eos # (Auto) 0.0 Baso # (Auto) 0.0 Abs Immat Gran (auto) 0.06 H Absolute Neuts (auto) 10.0 H Absolute Nucleated RBC 0.000 Nucleated RBC % (auto) 0.0 Smear Tech's Comments Lactic Acid Urine Color Urine Appearance Urine pH Ur Specific [place] Urine Protein Urine Glucose (UA) Urine Ketones Urine Blood Urine Nitrite Ur Leukocyte Esterase Cancelled Discharge Plan Discharge Anticipated Discharge Date/Time: 06/02/23 10:18 Patient Disposition: Home, Self-Care Discharge Diagnosis: acute appendicitis s/p lap appy Referrals: Gabino Alberto MD [Physician] - 1 Week Physician,None [Primary Care Provider] - 1 Week Discharge Medications: New oxycodone 5 mg tablet 5 mg PO Q4H PRN (Reason: pain (scale score 7-10)) Qty: 24 0RF Rx Instructions: Partial Fill upon patient request. docusate sodium [Colace] 100 mg capsule 100 mg PO BID PRN (Reason: constipation) Qty: 30 0RF Discharge Orders: Discharge Order (Routine); Ordered 06/02/23 Ordered By: Gabby Triana Diet: Advance to usual diet Activity on Discharge: No heavy lifting Stand Alone Forms: Patient Portal Discharge page Activity Restrictions/Additional Instructions: If the incision area is tender, you may apply an ice pack for short intervals (No more than 20 minutes on, followed by at least 20 minutes off). Do not apply heat. Do not use creams, lotions, or topical antibiotics. These can cause infection or allergic reaction. Ok to shower. Remove clear dressings 3 days following your procedure. You have steri strips (small white cloth strips) covering your incision- these will fall off ~1 week. No heavy lifting (>10lbs) or strenuous activity! Follow up in office with Dr. Alberto in 1 week. ([phone]) Call Your Doctor If: -Your temperature exceeds 101.5? F -You experience excessive pain or swelling -You have an unexpected reaction to medication -You have excessive bleeding -You experience continued vomiting/nausea -Your incision begins to separate -Your incision shows signs of infection such as increased redness, swelling, excessive pain, drainage (light blood or clear fluid is normal) or heat Care Plan Goals: Return to baseline health and resume normal activities following recovery period. Health Concerns: acute appendicitis s/p lap appy Plan of Treatment: f/u in office in 1 week Assessment: Doing well post op Discharge Date/Time: 06/02/23 10:50
--- NOTE | 2023-06-02 14:22 | HO.POSTANES ---
Post Anesthesia Evaluation Post Anesthesia Evaluation Date of Service: 06/02/23 Vital Signs: Vital Signs Temp Pulse Resp BP Pulse Ox O2 Del Method 06/02/23 07:23 98.0 F 77 16 121/83 97 Room Air 06/02/23 02:56 96.8 F 70 16 135/80 97 Room Air Anesthesia: General Endotracheal-GETA Mental Status: Awake Pain Control: Satisfactory Nausea/Vomiting: None Hydration: Adequate Anesthesia-Related Issues: No Anes. Related Issues
== END 2023-06-02 10:50 | disposition home or self-care (01) | DRG 225 ==
LOC: HO.ED 16:20 → HO.EDOVER 18:02 → HO.S3 20:32
PROVIDERS: Student in an Organized Health Care Education/Training Program; Admitting Provider Surgery; Emergency Provider Internal Medicine; Visit Provider Surgery
PROC: 0DTJ4ZZ Resection of Appendix, Percutaneous Endoscopic Approach (ICD-10-PCS; CPT 44970; principal; 2023-06-01 19:30)
DX: K35.891 Other acute appendicitis without perforation, with gangrene (principal); Z88.0 Allergy status to penicillin
CPT/HCPCS: 44970; 36415; 74177; 80048; 80076; 81003; 83605; 83690; 85025; 87040; 88304; 99285; J0131; J0665; J0696; J1100; J1836; J1885; J2405; J2704; J3010; Q9967

== ENCOUNTER → 2023-06-01 17:58 | Outpatient (BNV) | payer BC, SELFPAY | PROVIDERS: Admitting Provider Surgery; Emergency Provider Internal Medicine; Visit Provider Surgery | DX: K35.30 Acute appendicitis with localized peritonitis, without perforation or gangrene (principal) | CPT/HCPCS: 44970; 99024; 99222 ==

== ENCOUNTER 2023-06-10 10:41 | Outpatient (AMB) | payer BC, SELFPAY ==
--- NOTE | 2023-06-10 10:44 | A.OFFVIS_ITS ---
Intake Vital Signs 06/10/23 10:50 Height 5 ft 6 in Weight 158 lb 4 oz BMI 25.5 BP 132/80 Blood Pressure Location Lt brachial Position Sitting Pulse 92 Intake Visit Reasons: S/p lap appy Intake Note: Patient is seen in office for post op assessment post laparoscopic appendectomy. Pt c/o: admits to sore and tender, denies redness, discharge or other concerns Op:06/01/23 Accompanied by: Self / Same As Patient Allergies Penicillins [PCN] Allergy (Unknown, Verified 06/10/23 10:51) HIVES HPI HPI Comments 2 History of Present Illness Details 48-year-old male patient returning 1 week following a laparoscopic appendectomy for acute appendicitis. He tolerated the procedure well and denies nausea, vomiting, fever, chills, diarrhea or constipation. he returns for a routine postoperative visit. [facility] Surgical History (Updated 06/10/23 @ 09:35 by DENNIS Whitehead) S/P laparoscopic appendectomy (06/01/23) Social History Household Members: Spouse Housing: House Do you presently have visiting nurse or other home services: No Alcohol intake: current Alcohol intake frequency: 0-2 drinks per day Patient Tobacco Use Status: Never used Tobacco service: No Physical Exam Const General: no acute distress Nutritional Appearance: well nourished Orientation/consciousness: patient oriented x3 Limitations: no limitations Resp Effort & Inspection: normal respiratory effort GI Other: Trocar incisions are clean, dry, and intact without redness or discharge. No evidence of hernia or infection. Inspection: Yes normal to inspection Neuro General: patient oriented x3 Extrem General: Yes normal to inspection Assessment & Plan Assessment & Plan (1) Acute appendicitis: Code(s): K35.80 - Unspecified acute appendicitis Qualifiers: Acute appendicitis type: with localized peritonitis Appendicitis abscess presence: without abscess Appendicitis gangrene presence: without gangrene Appendicitis perforation presence: without perforation Qualified Code(s): K35.30 - Acute appendicitis with localized peritonitis, without perfora tion or gangrene Plan Patient returns 1 week following laparoscopic appendectomy. His wounds are clean and intact without redness or discharge. He should continue to avoid lifting greater than 10 lb until next Friday after which he may return to normal activity. He should follow up as needed. Coding Level of Care Code Global (91990) Diagnoses Acute appendicitis with localized peritonitis, without perforation, abscess, or gangrene K35.30 Acute appendicitis type: with localized peritonitis Appendicitis abscess presence: without abscess Appendicitis gangrene presence: without gangrene Appendicitis perforation presence: without perforation
[2023-06-10 10:50] VITALS: BP 132/80; PULSE 92; BMI 25.5
== END 2023-06-10 10:52 | disposition home or self-care (01) ==
PROVIDERS: Visit Provider Surgery
DX: K35.30 Acute appendicitis with localized peritonitis, without perforation or gangrene (principal)
CPT/HCPCS: 99024

== ENCOUNTER → 2023-06-10 10:41 | Outpatient (BNVA) | payer BC, SELFPAY | PROVIDERS: Visit Provider Surgery ==

== ENCOUNTER 2023-09-02 12:18 | Emergency (ER) | payer BC, SELFPAY ==
--- NOTE | ~2023-09-02 | US_ITS ---
EXAMINATION: US ABDOMEN LIMITED CLINICAL INFORMATION: Left inguinal area and sent for hernia. COMPARISON: CT abdomen pelvis 06/01/2023 TECHNIQUE: Real-time imaging of the left inguinal region. FINDINGS: There is a small bulge seen in the left inguinal with a broad wide neck of 3.1 cm. The time of the prior CT scan, a small inguinal hernia was seen predominantly containing only fat. US/US abdomen limited IMPRESSION: Probable small left inguinal hernia. If there is clinical concern, a repeat CT scan is recommended for further evaluation.
[2023-09-02 13:07] VITALS: BP 137/87; PULSE 79; RESP 18; TEMP 36.7; O2SAT 100; BMI 25.8
--- NOTE | 2023-09-02 13:08 | ED_ITS ---
HPI - General Adult General Chief complaint: Abdominal Pain Stated complaint: abd groin and leg pain Time Seen by Provider: 09/02/23 17:43 Source: patient Mode of arrival: ambulatory Limitations: no limitations History of Present Illness HPI narrative: Patient is a 48-year-old male presents emergency department for evaluation of pain to the left groin that he feels at times radiating into his thigh. He reports it has been bothering him for the past year but recently progressively worsening. He admits to having appendectomy in May of 2023 and since then has been particularly more bothersome. Today while at work he was lifting something heavy and he noticed again in increase in pain. At this time pain is minimal and back to baseline, described as a mild ache currently 05/07. He does admit to feeling a bulge in the abdomen that is present typically as the day goes on but disappears while lying supine and in the morning. He has a history of prior inguinal hernias with surgical repair. He denies fevers, chills, nausea, vomiting, diarrhea, constipation, hematochezia, melena, urogenital symptoms, testicular pain or swelling Related Data Previous Rx's ?Medication ?Instructions ?Recorded docusate sodium 100 mg capsule 100 mg PO BID PRN constipation #30 06/02/23 (Colace) caps oxycodone 5 mg tablet 5 mg PO Q4H PRN pain (scale score 06/02/23 7-10) #24 tabs Allergies Allergy/AdvReac Type Severity Reaction Status Date / Time Penicillins [PCN] Allergy Unknown HIVES Verified 09/02/23 13:10 Review of Systems 2 Review of Systems: Yes all other systems are reviewed and are negative PMFSH Past Medical History Attestation statement: The following information was validated with the patient. Source: old records reviewed Surgical History S/P laparoscopic appendectomy (06/01/23) Social History Social History Household Members: Spouse Housing: House Do you presently have visiting nurse or other home services: No Alcohol intake: current Alcohol intake frequency: 0-2 drinks per day Patient Tobacco Use Status: Never used Tobacco Use of substances other than those prescribed or required for medical reasons: No Advance Directives: No Advance Directives Information Provided: No service: No Physical Exam ED Vital Signs: Vital Signs - 24 hr 09/01/ 13:07 Temperature 98.0 F Pulse Rate 79 Respiratory Rate 18 Blood Pressure 137/87 Pulse Oximetry 100 Oxygen Delivery Method Room Air BMI result Body Mass Index 25.8 Appearance: Alert.?Oriented to person, place and time. No acute distress.?Normal affect. Eyes: Pupils equal, round and reactive to light.? ENT: Pharynx normal.?? Neck: Normal inspection.? Neck supple.?? CVS: Heart sounds normal. Normal heart rate and rhythm.? Pulses normal.?? Respiratory: No respiratory distress.? Lung sounds clear to auscultation bilaterally?? Abdomen: Soft and non-tender. Normoactive bowel sounds. Exam performed with pen and pencil repairer, ED photo equipment technician Navdeep. Palpable left inguinal hernia manually reducible without complication. No overlying skin changes. Skin: Skin warm and dry.? Normal skin color.? ? Extremities: No lower extremity edema.? Neuro: Moves all extremities spontaneously. Sensation intact bilaterally. Ambulates with normal steady gait. Course Course Course Narrative: This is a Rapid Medical Examination (RME) performed by Rhiannon Bull PA-C in triage. Full HPI, ROS, assessment and treatment plan per primary provider in the Main ED. 48 yo male presenting for evaluation of left abdominal and groin pain, radiating into left thigh. States symptoms have been persisting for over 1 year, but recently worsening. Lifts heavy items at work. Recent appendectomy in early May 2023, otherwise PMH unremarkable. Patient reports previous inguinal hernias about 15+ years ago on both sides, two separate occasions. Mild tenderness to palpation in left lower inguinal region. Plan: Ultrasound, labs Medical Decision Making Medical Decision Making MDM Narrative: Patient is a 48-year-old male who presents emergency department for evaluation of left inguinal pain and palpable mass. Physical examination does have a left inguinal hernia that is manually reproducible without complication. Ultrasound with evidence of small left inguinal hernia, wide brought and echo 3.1 cm, seen on prior CT scan in May 2023 at that time containing only fat. At this time I do not see clinical indication for CT abdomen and pelvis, not consistent with acutely incarcerated hernia/strangulation. Recommend outpatient follow-up with General surgery, provided with referral, discussed strict return precautions. All questions were answered. Stable for discharge. Differential Diagnosis Differential Diagnoses: The differential diagnosis associated with the presentation includes (See narrative above) Admission/Observation Consideration of admission/observation: Escalation of care including admission/observation considered (See narrative above) Lab Data MDM Lab Attestation statement: I reviewed the patient's lab results. CBC reveals no leukocytosis, normocytic anemia that does not meet transfusion criteria, no thrombocytopenia. No electrolyte derangement. Elevated BUN which appears consistent with prior levels in May 2023, cramp within normal range. LFTs within normal range. Urinalysis declined by patient. 09/02/23 13:19 09/02/23 13:19 Labs: Lab Results 09/02/23 Range/Units 13:19 WBC 7.4 (4.8-10.8) X10*3/uL RBC 4.06 L (4.60-5.80) X10*6/uL Hgb 12.2 L (14.0-18.0) g/dl Hct 34.8 L (42.0-52.0) % MCV 85.7 (80.0-98.0) fL MCH 30.0 (27.0-33.0) pg MCHC 35.1 (31.0-36.0) g/dl RDW 12.7 (11.0-16.0) % Plt Count 385 (160-400) X10*3/uL MPV 9.1 L (9.4-12.4) fL Immature Gran % (Auto) 0.3 (0.0-0.4) % Neut % (Auto) 49.7 (45-73) % Lymph % (Auto) 35.4 (20-40) % [place] % (Auto) 11.1 H (2-11) % Eos % (Auto) 2.6 (0-4) % Baso % (Auto) 0.9 (0-2) % Lymph # (Auto) 2.6 (1.2-4.9) X10*3/uL [place] # (Auto) 0.8 (0.1-1.2) X10*3/uL Eos # (Auto) 0.2 (0.0-0.4) X10*3/uL Baso # (Auto) 0.1 (0.0-0.2) X10*3/uL Abs Immat Gran (auto) 0.02 (0.00-0.03) X10*3/uL Absolute Neuts (auto) 3.7 (2.0-8.3) x10*3/uL Absolute Nucleated RBC 0.000 (0.0-0.012) X10*3/uL Nucleated RBC % (auto) 0.0 (0.0-0.2) /100WBC Sodium 140 (135-145) mmol/L Potassium 4.3 (3.3-5.1) mmol/L Chloride 106 (96-108) mmol/L Carbon Dioxide 24 (22-29) mmol/L Anion Gap 14 (12-20) BUN 29 H (9-16) mg/dL Creatinine 0.80 (0.5-1.4) mg/dL Estim Creat Clear Calc 99.6 Estimated GFR > 60 Random Glucose 88 (60-115) mg/dL Calcium 9.8 (8.4-10.2) mg/dL Magnesium 2.1 (1.6-2.6) mg/dL Total Bilirubin 0.3 (0.0-1.0) mg/dL Direct Bilirubin 0.1 (0.0-0.5) mg/dL AST 19 (5-37) U/L ALT 22 (0-40) U/L Alkaline Phosphatase 92 (39-117) U/L Total Protein 7.9 (6.5-8.0) g/dL Albumin 4.2 (3.5-5.0) g/dL Radiology Impression Discussion of test interpretation with radiology: I have reviewed the radiologist's reading. Radiologist Impression: US/US abdomen limited IMPRESSION: Probable small left inguinal hernia. If there is clinical concern, a repeat CT scan is recommended for further evaluation. External Record Review External record reviewed: Outpatient record Discharge Plan Discharge Clinical Impression: Inguinal hernia Patient Disposition: Home, Self-Care Instructions: Inguinal Hernia (ED), Inguinal Hernia Repair (DC) Additional Instructions: You can take ibuprofen 200 mg, 3 tablets (600mg) every 6-8 hours as needed for pain, in addition to Tylenol 500 mg, 2 tablets (1,000mg) every 4-6 hours as needed for pain, but not to exceed 3 doses daily (3,000mg).? As discussed, return back to emergency department if you develop severe worsening abdominal pain, nausea, vomiting, enlargement of the mass, discoloration of the skin surrounding the area, bloody stools, weakness, dizziness, fever, chills. If you can avoid any heavy lifting as this may worsen your symptoms. Be sure to stay well hydrated and drink plenty of fluid, increase fiber in diet to avoid any straining with bowel movements or constipation. Contact the general surgeon's office to arrange for outpatient follow-up. Prescriptions: No Action oxycodone 5 mg tablet 5 mg PO Q4H PRN (Reason: pain (scale score 7-10)) Qty: 24 0RF Rx Instructions: Partial Fill upon patient request. docusate sodium [Colace] 100 mg capsule 100 mg PO BID PRN (Reason: constipation) Qty: 30 0RF Referrals: Gabino Alberto MD [Physician] - Print Language: Maori
[2023-09-02 13:23] LABS: MANUAL DIFF FLAG NO
[2023-09-02 13:28] LABS: Basophils Absolute Auto 0.1 X10*3/uL (0.0-0.2); Basophils Percent Auto 0.9 % (0-2); Eosinophils Absolute Auto 0.2 X10*3/uL (0.0-0.4); Eosinophils Percent Auto 2.6 % (0-4); Hematocrit 34.8 % (42.0-52.0); Hemoglobin 12.2 g/dl (14.0-18.0); Imm Gran Abs Auto 0.02 X10*3/uL (0.00-0.03); Imm Gran Pct Auto 0.3 % (0.0-0.4); Lymphocytes Absolute Auto 2.6 X10*3/uL (1.2-4.9); Lymphocytes Percent Auto 35.4 % (20-40); Mean Corpuscular HGB Conc 35.1 g/dl (31.0-36.0); Mean Corpuscular Volume 85.7 fL (80.0-98.0); Mean Platelet Volume 9.1 fL (9.4-12.4); Monocytes Absolute Auto 0.8 X10*3/uL (0.1-1.2); Monocytes Percent Auto 11.1 % (2-11); Neutrophils Absolute Auto 3.7 x10*3/uL (2.0-8.3); Neutrophils Percent Auto 49.7 % (45-73); Platelet Count 385 X10*3/uL (160-400); Red Blood Count 4.06 X10*6/uL (4.60-5.80); Red Cell Distribution Width 12.7 % (11.0-16.0); White Blood Count 7.4 X10*3/uL (4.8-10.8)
[2023-09-02 14:04] LABS: Alanine Aminotransferase 22 U/L (0-40); Albumin Level 4.2 g/dL (3.5-5.0); Alkaline Phosphatase 92 U/L (39-117); Anion Gap 14 (12-20); Aspartate Amino Transferase 19 U/L (5-37); Bilirubin Direct 0.1 mg/dL (0.0-0.5); Bilirubin Total 0.3 mg/dL (0.0-1.0); Blood Urea Nitrogen 29 mg/dL (9-16); Calcium 9.8 mg/dL (8.4-10.2); Carbon Dioxide 24 mmol/L (22-29); Chloride 106 mmol/L (96-108); Creatinine Clr Calc Pharmacy 99.6; Estimated Glomerular Filt Rate > 60; Glucose Random 88 mg/dL (60-115); Magnesium 2.1 mg/dL (1.6-2.6); Potassium 4.3 mmol/L (3.3-5.1); Sodium 140 mmol/L (135-145); Total Protein 7.9 g/dL (6.5-8.0)
[2023-09-02 18:41] VITALS: BP 146/91; PULSE 78; RESP 18; TEMP 36.6; O2SAT 100
== END 2023-09-02 18:43 | disposition home or self-care (01) ==
PROVIDERS: Physician Assistant; Emergency Provider Emergency Medicine
DX: K40.90 Unilateral inguinal hernia, without obstruction or gangrene, not specified as recurrent (principal); Z90.49 Acquired absence of other specified parts of digestive tract
CPT/HCPCS: 36415; 76705; 80048; 80076; 83735; 85025; 99283; 99284

== ENCOUNTER 2023-09-18 15:43 | Outpatient (AMB) | payer BC, SELFPAY ==
--- NOTE | 2023-09-18 15:44 | A.OFFVIS_ITS ---
Vital Signs 09/18/23 15:49 Height 5 ft 6 in Weight 161 lb BMI 26.0 BP 136/88 Blood Pressure Location Rt brachial Position Sitting Pulse 104 H Intake Visit Reasons: ER follow up [facility] Intake Note: Patient is seen in office for ER follow up visit, following left inguinal hernia. Pt c/o: pain comes and goes. Taking tylenol or ibuprofen as needed. ED & US:09/02/23 Automobile Service Station Manager Required: No Accompanied by: Self / Same As Patient Allergies Penicillins [PCN] Allergy (Unknown, Verified 09/18/23 15:47) HIVES Medication List - Last Reconciled 09/19/23 by Gabino Alberto MD No Known Home Meds HPI Comments Details: 48-year-old male patient well known to me with a previous history of appendicitis now presenting with complaints of a lump in the left groin. This was previously identified during the laparoscopic appendectomy and also confirmed by CT abdomen and pelvis. Since his surgery however he has noted the lump to have increased in size and now occasionally has some discomfort. He has been able to reduce the hernia with light pressure and denies any nausea, vomiting, fever, chills, diarrhea or constipation. He denies a previous history of hernias or hernia surgery. He is quite busy at work and is not sure he can take the time off to have surgery. [facility] Surgical History S/P laparoscopic appendectomy (06/01/23) Social History Household Members: Spouse Housing: House Do you presently have visiting nurse or other home services: No Alcohol intake: current Alcohol intake frequency: 0-2 drinks per day Patient Tobacco Use Status: Never used Tobacco service: No Review of Systems Const All systems reviewed & are unremarkable except as noted in HPI and below Denies chills, Denies fever(s), Denies headache(s), Denies poor appetite and Denies weakness ENT Denies headache(s) Card Denies chest pain, Denies irregular heart rhythm, Denies palpitations and Denies dyspnea Resp Denies cough, Denies excessive phlegm production and Denies dyspnea GI Denies abdominal pain, Denies bloating, Denies change in bowel habits, Denies constipation, Denies heartburn, Denies diarrhea, Denies nausea and Denies vomiting Denies difficulty urinating and Denies urinary frequency Musc Denies back pain, Denies muscle weakness and Denies numbness Skin/Breast Denies changing lesions and Denies unusual bruising Neuro Denies headache(s), Denies numbness, Denies paresthesias and Denies weakness Psych Denies anxiety and Denies depression Endo Denies palpitations Tank/Lymph Denies lymphadenopathy Physical Exam Vital Signs: Last Vital Signs Pulse 104 H 09/18/23 15:49 BP 136/88 09/18/23 15:49 BMI result Body Mass Index 26.0 Const General: cooperative and no acute distress Nutritional Appearance: well nourished Orientation/consciousness: patient oriented x3 Limitations: no limitations HEENT Head: Yes normocephalic and Yes atraumatic Ears: hearing grossly normal bilaterally Resp Effort & Inspection: normal respiratory effort, no audible wheezes, no cough and no respiratory distress Cardio Jugular venous distension: no JVD GI Other: Palpable left inguinal hernia noted in the standing position which increases in size with Valsalva maneuvers and easily reduces with light pressure. There is no tenderness to palpation and no overlying skin changes. Inspection: Yes normal to inspection Skin Other: Warm, dry, no rash Neuro General: patient oriented x3 Extrem General: Yes no clubbing, cyanosis or edema Assessment & Plan Assessment & Plan (1) Reducible left inguinal hernia: Code(s): K40.90 - Unilateral inguinal hernia, without obstruction or gangrene, not specified as recurrent Category: Medical Plan 48-year-old male patient presenting with a palpable left inguinal hernia which occasionally causes some discomfort. We discussed the repair and postoperative care required with the repair. He is uncertain about the timing of the repair and wishes to call when ready to schedule. I discussed the possibility of wearing a hernia truss to keep the hernia reduced while performing heavy lifting. This would be a temporizing measure and may help to prevent the hernia from getting larger. I would recommend repair at his earliest convenience and after review of the procedure, risks, and alternatives, he does consent to a repair of the reducible left inguinal hernia with mesh. Medications: Discontinued oxycodone Partial Fill upon patient request. Discontinued Reason: Patient no longer taking 5 mg PO Q4H PRN 24 tabs 0RF pain (scale score 7-10) docusate sodium (Colace) Discontinued Reason: Patient no longer taking 100 mg PO BID PRN 30 caps 0RF constipation Coding Level of Care Code Est Pt Level 4 (29194) Diagnoses Reducible left inguinal hernia K40.90
[2023-09-18 15:49] VITALS: BP 136/88; PULSE 104; BMI 26.0
== END 2023-09-18 15:55 | disposition home or self-care (01) ==
PROVIDERS: Visit Provider Surgery
DX: K40.90 Unilateral inguinal hernia, without obstruction or gangrene, not specified as recurrent (principal)
CPT/HCPCS: 99214

== ENCOUNTER → 2023-09-18 15:43 | Outpatient (BNVA) | payer BC, SELFPAY | PROVIDERS: Visit Provider Surgery ==

== ENCOUNTER 2024-03-03 11:34 | Day surgery (SDC) | payer BC, SELFPAY ==
[2024-02-18 16:52] VITALS: BMI 26.6
[2024-03-03] VITALS (8 sets, daily range): BP systolic 124–145; BP diastolic 74–100; PULSE 69–85; RESP 16–18; TEMP 36.2–36.7; O2SAT 97–100; BMI 25.7
[2024-03-03] MEDS: Lactated Ringers 1,000 ML 100 ML IVCONT (12:42)
[2024-03-03] MEDS: vancomycin HCL 1,000 MG in 0.9 % Sodium Chloride 250 ML 270 MG IV (12:56)
--- NOTE | 2024-03-03 13:11 | MHC.SHP ---
Pre-Procedural Eval Section A - 24 Hr Update-Section A only Date of Service: 03/03/24 The patient is an INPATIENT: No Changes since office visit: Yes Patient answered all questions; No Cold of Flu in the past 2 weeks, No New Medical Problems and No Changes in Medication Section B - Complete if H&P > 30 days Chief Complaint: Unilateral inguinal hernia, without obstruction Details of Present Illness: No change since prior visit Relevant Family History (Specify if Yes): No Relevant Social History: None Present Medications: see Short Stay Collaborative assessment Medical History: No relevant PMH History of Previous Operations: No relevant previous surgery Allergies: Allergies Allergy/AdvReac Type Severity Reaction Status Date / Time Penicillins [PCN] Allergy Intermediate HIVES Verified 03/03/24 11:44 Review of Systems Sugical H&P ROS: Negative: Constitution, Gastrointestinal, Genitourinary and Musculoskeletal Exam Surgical H&P Exam: Normal: Heart, Normal: Lungs, Normal: Abdomen and Normal: Skin Plan Diagnosis/Plan: Unchanged I have reviewed the history and physical and performed a pertinent physical examination on my patient. No changes have occurred unless specified. Time Spent With Patient Time: Total time managing care of this patient today ____ minutes.
--- NOTE | 2024-03-03 13:47 | P.CONAN_ITS ---
HPI - Anesthesia Eval Consult details Narrative: for left inguinal hernia repair. Anesthesia Pre-Procedure Meds If yes to any meds - educate patient: Pt education - increased risk of aspiration and/or euvolemic DKA PMFSH Active Problems Active Problems: All Active Problems Reducible left inguinal hernia (Acute) Acute appendicitis (Acute) Past Medical History Medical History (Updated 02/18/24 @ 16:57 by Trish Hendrickson RN) Back pain Family History Family history of problems with anesthesia: No Surgical History Surgical History (Updated 02/18/24 @ 16:51 by Trish Hendrickson RN) Hx of hernia repair (~1983) Hx of hernia repair (~2003) S/P laparoscopic appendectomy (06/01/23) History of Problems with Anesthesia: No Social History Social History (Updated 02/18/24 @ 16:58 by Trish Hendrickson RN) Household Members: Spouse Housing: House Are you a primary home visit field care manager to a significant other at home: No Do you presently have visiting nurse or other home services: No Alcohol intake: current Alcohol intake frequency: 0-2 drinks per day Patient Tobacco Use Status: Never used Tobacco e-Cigarette/Vaping Use: Never Used Use of substances other than those prescribed or required for medical reasons: No Have you been hit, kicked, punched, or otherwise hurt by someone within the past year? If so, by whom?: No Are you DNR?: No Advance Directives: No Advance Directives Information Provided: Yes Advance Directives on File: No Recently lost weight without trying: No Nutrition Risks: No Nutritional Risk service: No Current occupational status: employed Meds Allergies Allergy/AdvReac Type Severity Reaction Status Date / Time Penicillins [PCN] Allergy Intermediate HIVES Verified 03/03/24 11:44 Active Medications: Current Medications Lactated Ringer's (Lr) 1,000 mls @ 100 mls/hr IVCONT .Q10H LADONNA Last Admin: 03/03/24 12:42 Dose: 100 mls/hr Home Medications ?Medication ?Instructions ?Recorded ?Confirmed ?Last Taken ?Type No Known Home Meds 09/19/23 02/18/24 Unknown History Exam Height,Weight and Vital Signs: Height 5 ft 6 in Weight 72.121 kg Last Vital Signs Temp 98.0 F 03/03/24 11:55 Pulse 76 03/03/24 11:55 Resp 16 03/03/24 11:55 BP 145/90 H 03/03/24 11:55 Pulse Ox 97 03/03/24 11:55 O2 Del Method Room Air 03/03/24 11:55 Airway Mallampati Class: II TM Dist: <=3cm Neck ROM: Full Loose/Missing/Broken Teeth: No Heart: ok Lungs: ok Assessment and Plan Assessment Anesthesia Assessment: Anesthesia Plan Discussed and Chart Reviewed Final Anesthetic Review Family History of Problems with Anesthesia: No History of Problems with Anesthesia: No NPO: Yes ASA Class: I Final Preanesthetic Review: No Changes in Pt Med Stat, Meds/Allgs Chart Reviewed, Consent Obtained/Reviewed and Anes Risks/Benef Reviewed Patient Risk: Low Procedure Risk: Low Anesthetic Plan Anesthetic Plan: GA and Agree w/ Assess. and Plan Disposition: Standard PACU
--- NOTE | 2024-03-03 15:03 | P.OP_ITS ---
Operative Note Operative Note Date of Service: 03/03/24 Narrative: Preoperative diagnosis: Recurrent left inguinal hernia, reducible Postoperative diagnosis: Recurrent left inguinal hernia, reducible Procedure: Repair of recurrent left inguinal hernia with mesh Surgeon: Gabino Alberto MD Earth Science Teacher: Gabby Triana PA-C Anesthesia: General LMA Indications for procedure: 48-year-old male patient presenting with a recurrent lump in the left groin which is now increasing in size and causing discomfort. On examination the patient is found to have a recurrent left inguinal hernia with a previous open repair. The hernia increases in size with Valsalva but is easily reducible with light pressure. Operative findings: Indirect left inguinal hernia Specimen: None Estimated blood loss: 2 mL Complications: None Procedure details: Patient was brought to the OR and placed in a supine position. After administering general anesthesia the patient's abdomen was prepped with ChloraPrep and draped in a sterile fashion. A surgical time-out was called the consent confirmed. Patient received preoperative antibiotics and Venodyne boots were in place. Local anesthesia consisting of 0.5% Sensorcaine was then infiltrated over the previous incision in the left groin. A transverse incision was then made with a scalpel and carried out through subcutaneous tissue, past Jeffrey's fashion up to the external oblique aponeurosis. Additional local was infiltrated below the aponeurosis and an incision made with a scalpel. This was then widened with the Metzenbaum scissors. The spermatic cord was dissected free from the surrounding inguinal canal. Should be noted that a significant amount of scar tissue was noted from the previous repair. The cord was then retracted using a Linda drain. A thickened cord was identified suggestive of a an indirect hernia. The floor of the inguinal canal felt to be intact without evidence of a direct hernia. Fibers of the cremaster muscle were then and a indirect sac identified. This was dissected down to the internal ring. The spermatic cord contents were preserved during this dissection. The contents of the hernia were then reduced into the abdominal cavity. The preperitoneal space was then further dissected using an open Ray-Ina sponge. A large PHS mesh was then obtained. The circular underlay was then deployed within the preperitoneal space. The overlay was then secured to the pubic tubercle, conjoined tendon and shelving edge of the inguinal ligament using a 0 Polysorb suture. A slit was made in the mesh in the mesh wrapped around the spermatic cord at the internal ring. This was then secured to the shelving edge using the 0 Polysorb suture. The internal ring was tightened to allow only the passage of the index finger through the ring. Wounds were then irrigated with saline solution and suctioned dry. External oblique aponeurosis was then closed using a running 2-0 Polysorb suture. Approximately 8 mL of Zenrelef was then instilled below the external oblique aponeurosis. Jeffrey's fascia and dermis were then reapproximated using interrupted 3-0 Polysorb sutures. Skin was closed using a running subcuticular 4-0 Polysorb suture. Steri-Strips, 4 x 4 gauze and Tegaderm were then applied. The patient tolerated the procedure well. Sponge, instrument, and needle counts reported as correct. The patient was transferred to PACU in stable condition.
[2024-03-03] MEDS: oxyCODONE HCl Immed Release 5 MG TABLET PO (15:30)
== END 2024-03-03 16:08 | disposition home or self-care (01) ==
PROVIDERS: Visit Provider Surgery
PROC: (CPT 49520; principal; 2024-03-03 13:00)
DX: K40.90 Unilateral inguinal hernia, without obstruction or gangrene, not specified as recurrent (principal); Z98.890 Other specified postprocedural states; Z88.0 Allergy status to penicillin
CPT/HCPCS: 49520; C1781; C9088; J1885; J2704; J2795; J3010; J3370

== ENCOUNTER → 2024-03-03 11:34 | Outpatient (BNV) | payer BC, SELFPAY | PROVIDERS: Visit Provider Surgery | DX: K40.90 Unilateral inguinal hernia, without obstruction or gangrene, not specified as recurrent (principal) | CPT/HCPCS: 49520 ==

== ENCOUNTER 2024-03-12 13:08 | Outpatient (AMB) | payer BC, SELFPAY ==
--- NOTE | 2024-03-12 13:09 | A.OFFVIS_ITS ---
Vital Signs 03/12/24 13:15 Height 5 ft 6 in Weight 162 lb 6 oz BMI 26.2 BP 138/89 Blood Pressure Location Lt brachial Position Sitting Pulse 73 Intake Visit Reasons: S/P LIH w/mesh Intake Note: Patient is seen in office for post op assessment post left inguinal hernia. Pt c/o: admits to sore and tender Manager Book Required: No Accompanied by: Self / Same As Patient Allergies Penicillins [PCN] Allergy (Intermediate, Verified 03/12/24 13:15) HIVES HPI Comments Details: Patient returns 1 week following repair of a left inguinal hernia recurrence, with mesh. He tolerated the procedure well in notes an improvement in his pain. He denies any bleeding or discharge from the incision. He is eating well in his bowels are working fine. [facility] Medical History Back pain Surgical History H/O left inguinal hernia repair (03/03/24) Hx of hernia repair (~1983) Hx of hernia repair (~2003) S/P laparoscopic appendectomy (06/01/23) Social History Household Members: Spouse Housing: House Are you a primary hospice care sales consultant to a significant other at home: No Do you presently have visiting nurse or other home services: No Alcohol intake: current Alcohol intake frequency: 0-2 drinks per day Patient Tobacco Use Status: Never used Tobacco e-Cigarette/Vaping Use: Never Used service: No Current occupational status: employed Physical Exam Vital Signs: Last Vital Signs Pulse 73 03/12/24 13:15 BP 138/89 03/12/24 13:15 BMI result Body Mass Index 26.2 Const General: comfortable Nutritional Appearance: well nourished Orientation/consciousness: patient oriented x3 Resp Effort & Inspection: normal respiratory effort GI Other: Well-healed incision in the left groin with intact Steri-Strips. No hematoma or seroma is appreciated. No hernia noted with Valsalva maneuvers. Palpation (GI): Soft to palpation, nontender and no guarding Neuro General: patient oriented x3 Extrem General: Yes no clubbing, cyanosis or edema Assessment & Plan Assessment & Plan (1) Reducible left inguinal hernia: Code(s): K40.90 - Unilateral inguinal hernia, without obstruction or gangrene, not specified as recurrent Category: Medical Plan 48-year-old male patient returning 1 week following repair of a recurrent left inguinal hernia with mesh. He tolerated the procedure well and his wounds are healing nicely. Should continue to avoid lifting greater than 10 lb and return approximately 4 weeks for final postoperative visit. Coding Level of Care Code Global (62907) Diagnoses Reducible left inguinal hernia K40.90
[2024-03-12 13:15] VITALS: BP 138/89; PULSE 73; BMI 26.2
== END 2024-03-12 13:21 | disposition home or self-care (01) ==
PROVIDERS: Visit Provider Surgery
DX: K40.90 Unilateral inguinal hernia, without obstruction or gangrene, not specified as recurrent (principal)
CPT/HCPCS: 99024

== ENCOUNTER 2024-04-13 14:40 | Outpatient (AMB) | payer BC, SELFPAY ==
--- NOTE | 2024-04-13 14:42 | MHC.OFFVIS ---
Vital Signs 04/13/24 14:47 Height 5 ft 6 in Weight 171 lb 8 oz BMI 27.7 BP 138/86 Blood Pressure Location Lt brachial Position Sitting Pulse 101 H Intake Visit Reasons: 1 mth follow up S/P LIH w/mesh Intake Note: Patient is seen in office for one month follow up visit, post left inguinal hernia repair. Pt c/o: Incident Response Analyst Required: No Accompanied by: Self / Same As Patient Allergies Penicillins [PCN] Allergy (Intermediate, Verified 04/13/24 14:46) HIVES Medication List - Last Reconciled 04/13/24 by Gabino Alberto MD No Known Home Meds HPI Comments Details: Patient returns 1 month following repair of a left inguinal hernia with mesh. He feels well and denies any ongoing symptoms. He has been at work and is tolerating this well. [facility] Medical History Back pain Surgical History H/O left inguinal hernia repair (03/03/24) Hx of hernia repair (~1983) Hx of hernia repair (~2003) S/P laparoscopic appendectomy (06/01/23) Social History Household Members: Spouse Housing: House Are you a primary medicare insurance specialist to a significant other at home: No Do you presently have visiting nurse or other home services: No Alcohol intake: current Alcohol intake frequency: 0-2 drinks per day Patient Tobacco Use Status: Never used Tobacco e-Cigarette/Vaping Use: Never Used service: No Current occupational status: employed Physical Exam Vital Signs: Last Vital Signs Pulse 101 H 04/13/24 14:47 BP 138/86 04/13/24 14:47 BMI result Body Mass Index 27.7 Const General: comfortable Nutritional Appearance: well nourished Orientation/consciousness: patient oriented x3 Resp Effort & Inspection: normal respiratory effort GI Other: Well-healed incision in the left groin with no palpable hernia with Valsalva maneuvers. No evidence of wound infection. Palpation (GI): Soft to palpation, nontender and no guarding Neuro General: patient oriented x3 Extrem General: Yes no clubbing, cyanosis or edema Assessment & Plan Assessment & Plan (1) Reducible left inguinal hernia: Code(s): K40.90 - Unilateral inguinal hernia, without obstruction or gangrene, not specified as recurrent Category: Medical Plan 48-year-old male patient returning 1 month following repair of a recurrent left inguinal hernia with mesh. He tolerated the procedure well and his wounds are healing nicely. He may resume normal activity without restriction and should follow up as needed. Coding Level of Care Code Global (96814) Diagnoses Reducible left inguinal hernia K40.90
[2024-04-13 14:47] VITALS: BP 138/86; PULSE 101; BMI 27.7
== END 2024-04-13 15:06 | disposition home or self-care (01) ==
PROVIDERS: PCP Physician Assistant; Visit Provider Surgery
DX: K40.90 Unilateral inguinal hernia, without obstruction or gangrene, not specified as recurrent (principal)
CPT/HCPCS: 99024